=== PATIENT | male | born 2000 | race Caucasian/White ===

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

== ENCOUNTER 2019-10-16 19:49 | Emergency (ER) | payer SELFPAY ==
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
[2019-10-16 20:31] LABS: ABS Lymphocytes 1.6 10^3/ul (1.0-4.8); ABS Monocytes 0.6 10^3/ul (0-0.8); ABS Neutrophils 7.6 10^3/ul (1.5-7.7); Eosinophil % 0.3 %; Hematocrit 37 % (42-52); Hemoglobin 12.6 g/dL (14.0-18.0); Lymphocyte % 16.4 %; Mean Corpuscular HGB Conc 34 g/dL (31-36); Mean Corpuscular Hemoglobin 29 pg (27-31); Mean Corpuscular Volume 86 fL (80-94); Mean Platelet Volume 7.4 fL (7.4-10.4); Platelet Count 294 10^3/uL (150-450); Red Blood Count 4.32 10^6 /uL (4.18-5.48); Red Cell Distribution Width 14 % (10-15); White Blood Count 9.9 10^3/uL (3.5-10.8)
[2019-10-16 20:44] LABS: Urine Appearance Cloudy; Urine Bilirubin Negative (Negative); Urine Blood Negative (Negative); Urine Color Yellow; Urine Glucose Negative (Negative); Urine Ketones Trace (Negative); Urine Nitrite Negative (Negative); Urine Protein 1+(30 mg/dL) (Negative); Urine Specific Gravity 1.028 (1.010-1.030); Urine Urobilinogen Negative (Negative)
--- OUTSIDE RECORDS SUMMARY | 2019-10-16 20:45 | XMS REPORT | Continuity of Care Document ---
:2000 External Reference #:[id number] Author Name Fermin Sepulveda MD Address [address] [place] [id number] Care Team Providers Name Role Phone Fermin Sepulveda MD FACP - Care Team Information Locker Room Attendant [phone] Internal Medicine Problems Active Problems Provider Date Excessive somnolence Fermin Sepulveda MD Onset: 05/13/2019 Panic disorder without agoraphobia Fermin Sepulveda MD Onset: 05/13/2019 Generalized anxiety disorder Fermin Sepulveda MD Onset: 05/13/2019 Social History Type Date Description Comments Sex Unknown Smokeless Tobacco Current Smokeless Tobacco User, Uses 2 times Daily ETOH Use Denies alcohol use Tobacco Use Start: Unknown Patient has never smoked Recreational Drug Use Denies Drug Use Smoking Status Reviewed: 05/13/19 Patient has never smoked Exercise Type/Frequency Does not exercise Allergies, Adverse Reactions, Alerts Description No Known Drug Allergies Medications Active Medications SIG Qnty Indications Ordering Provider Date Citalopram take 1 tablet by 30tabs F41.1 Fermin Williamson Hydrobromide mouth daily for MD Derick 20mg Tablets anxiety F41.0 Immunizations CPT Code Status Date Vaccine Lot # [id number] Given 09/29/2019 Tdap-Tetanus, Diphtheria Toxoids/Acellular [id number] Pertussis Vaccine 7+ [id number] Given 06/20/2019 Influenza Vaccine Quadrivalent Preser/Antibiotic Free Im Use [id number] Given 02/16/2009 Tdap-Tetanus, Diphtheria Toxoids/Acellular Pertussis Vaccine 7+ Vital Signs Date Vital Result Comment 09/29/2019 2:55pm Weight 135.00 lb 06/24/2019 1:33pm Heart Rate 66 /min BP Systolic 100 mmHg BP Diastolic 65 mmHg Weight 128.00 lb Results Test Acquired Date Facility Test Result H/L Range Note Urinalysis Profile 09/28/2019 [facility] Urine [place] [address] [phone] Urine Appearance Clear Urine Specific [place] 1.027 Normal 1.010-1.030 Urine pH 6.0 Normal 5-9 Urine Urobilinogen Negative Negative Urine Ketones Negative Negative Urine Protein Negative Negative Urine Leukocytes Negative Negative Urine Blood Negative Negative Urine Nitrite Negative Negative Urine Bilirubin Negative Negative Urine Glucose Negative Negative Urinalysis Profile 06/17/2019 [facility] Urine Color Straw [place], [place] [id number] [phone] Urine Appearance Clear Urine Specific [place] 1.009 Low 1.010-1.030 Urine pH 6.0 Normal 5-9 Urine Urobilinogen Negative Negative Urine Ketones Negative Negative Urine Protein Negative Negative Urine Leukocytes Negative Negative Urine Blood Negative Negative Urine Nitrite Negative Negative Urine Bilirubin Negative Negative Urine Glucose Negative Negative CBC No Diff 05/29/2019 [facility] White Blood 6.3 10^3/uL Normal 3.5-10.8 [place] [address] Count [phone] Red Blood Count 4.73 10^6/uL Normal 4.18-5.48 Hemoglobin 14.0 g/dL Normal 14.0-18.0 Hematocrit 42 % Normal 42-52 Mean Corpuscular Volume 89 fL Normal 80-94 Mean Corpuscular Hemoglobin 30 pg Normal 27-31 Mean Corpuscular HGB Conc 33 g/dL Normal 31-36 Red Cell Distribution Width 13 % Normal 10-15 Platelet Count 289 10^3/uL Normal 150-450 Mean Platelet Volume 7.9 fL Normal 7.4-10.4 Comp Metabolic 05/29/2019 [facility] Sodium 139 mmol/L Normal 135-145 Panel [place], [place] [id number] [phone] Potassium 4.4 mmol/L Normal 3.5-5.0 Chloride 104 mmol/L Normal 101-111 Co2 Carbon Dioxide 29 mmol/L Normal 22-32 Anion Gap 6 mmol/L Normal 2-11 Calcium 9.6 mg/dL Normal 8.6-10.3 Albumin 4.8 g/dL Normal 3.2-5.2 Total Bilirubin 0.30 mg/dL Normal 0.2-1.0 Glucose 83 mg/dL Normal 70-100 Blood Urea Nitrogen 17 mg/dL Normal 6-24 Creatinine 0.98 mg/dL Normal 0.67-1.17 BUN/Creatinine Ratio 17.3 Normal 8-20 Total Protein 7.0 g/dL Normal 6.4-8.9 Globulin 2.2 g/dL Normal 2-4 Albumin/Globulin Ratio 2.2 Normal 1-3 Alkaline Phosphatase 83 U/L Normal 34-104 Alt 10 U/L Normal 7-52 Ast 13 U/L Normal 13-39 Egfr Non- 96.6 >60 Egfr 116.8 >60 1 Laboratory test 05/29/2019 [facility] Creatine 138 U/L Normal 10-223 [place] [address] Kinase(CK) [phone] Cortisol 16.29 g/dL 2 TSH (Thyroid Stim Horm) 1.69 mcIU/mL Normal 0.34-5.60 Vitamin D Total 25(Oh) 24.3 ng/mL Normal 20-50 3 Vitamin B12 287 pg/mL Normal 180-914 4 Lipid Profile 05/29/2019 [facility] Triglycerides 51 mg/dL 5 (Trig/Chol/HDL) [place] [address] [phone] Cholesterol 125 mg/dL 6 HDL Cholesterol 41.2 mg/dL 7 LDL Cholesterol 74 mg/dL 8 Urinalysis Profile 05/29/2019 [facility] [place] [address] [phone] Urine Appearance Clear Urine Specific [place] 1.026 Normal 1.010-1.030 Urine pH 5.0 Normal 5-9 Urine Urobilinogen Negative Negative Urine Ketones Negative Negative Urine Protein Negative Negative Urine Leukocytes Negative Negative Urine Blood 2+ Abnormal Negative Urine Nitrite Negative Negative Urine Bilirubin Negative Negative Urine Glucose Negative Negative Urine White Blood Cell Trace(0-5/hpf) Absent Urine Red Blood Cell Trace(0-2/hpf) Absent Urine Bacteria Absent Absent Urine Culture And 05/29/2019 [facility] Urine Culture SEE RESULT 9 [place] [address] BELOW [phone] 1 Because ethnic data is not always readily available, this report includes an eGFR for both -Americans and non- Americans. The National Kidney Disease Education Program (NKDEP) does not endorse the use of the MDRD equation for patients that are not between the ages of 18 and 70, are , have extremes of body size, muscle mass, or nutritional status, or are non- or non-. According to the National Kidney Foundation, irrespective of diagnosis, the stage of the disease is based on the level of kidney function: Stage Description GFR(mL/min/1.73 m(2)) 1 Kidney damage with normal or decreased GFR 90 2 Kidney damage with mild decrease in GFR 60-89 3 Moderate decrease in GFR 30-59 4 Severe decrease in GFR 15-29 5 Kidney failure <15 (or dialysis) 2 AM 8.7-22.4 PM <10 3 Total 25-Hydroxyvitamin D2 and D3 (25-OH-VitD) <10 ng/mL (severe deficiency) 10-19 ng/mL (mild to moderate deficiency) 20-50 ng/mL (optimum levels) 51-80 ng/mL (increased risk of hypercalciuria) >80 ng/mL (toxicity possible) 4 Normal Range 180 to 914 Indeterminate Range 145 to 180 Deficient Range <145 5 Desirable: <150 Borderline High: 150-199 High: 200-499 Very High: >500 6 Desirable: <200 Borderline High: 200-239 High: >239 7 Low: <40 Desirable: 40-60 High: >60 8 Desirable: <100 Near Optimal: 100-129 Borderline High: 130-159 High: 160-189 Very High: >189 9 SEE RESULT BELOW Name: LISETH NAN : [address]: Fermin Sepulveda MD Acct: [id number] Unit: [id number] AGE: 19 Location: LAB Re05/29/19 SEX: M Status: REG REF SPEC: [id number] RAFAL: 05/29/[address]: Fermin Sepulveda MD REQ: [id number] RECD: 05/29/19 STATUS: COMP _ SOURCE: URINE SPDESC: ORDERED: Urine Culture Procedure Result Reported Site Urine Culture Final 05/30/19- 1003 ML No Growth (<1,000 CFU/mL) * ML - Main Lab . END OF REPORT DEPARTMENT OF PATHOLOGY, [address] [place] [id number] Michael Lemon M.D. Director [facility] # [id number] Procedures Description No Information Available Medical Devices Description No Information Available Encounters Type Date Location Provider Dx Diagnosis Office Visit 09/29/2019 Main Office Fermin Sepulveda G47.10 Hypersomnia, 3:00p unspecified F41.1 Generalized anxiety disorder F41.0 Panic disorder [episodic paroxysmal anxiety] R31.21 Asymptomatic microscopic hematuria Office Visit 06/24/2019 1:40p Main Office Fermin Williamson Z00.01 Encounter for MD Derick general adult medical exam w abnormal findings F41.1 Generalized anxiety disorder R31.21 Asymptomatic microscopic hematuria G47.10 Hypersomnia, unspecified Office Visit 05/13/2019 2:40p Main Office Fermin Williamson F41.1 Generalized anxiety MD Derick disorder F41.0 Panic disorder [episodic paroxysmal anxiety] G47.10 Hypersomnia, unspecified R53.83 Other fatigue Assessments Date Code Description Provider 09/29/2019 G47.10 Hypersomnia, unspecified Fermin Sepulveda MD 09/29/2019 F41.1 Generalized anxiety disorder Fermin Sepulveda MD 09/29/2019 F41.0 Panic disorder [episodic paroxysmal anxiety] Fermin Sepulveda MD 09/29/2019 R31.21 Asymptomatic microscopic hematuria Fermin Sepulveda MD 06/24/2019 Z00.01 Encounter for general adult medical Fermin Sepulveda MD examination with abnormal findings 06/24/2019 F41.1 Generalized anxiety disorder Fermin Sepulveda MD 06/24/2019 R31.21 Asymptomatic microscopic hematuria Fermin Sepulveda MD 06/24/2019 G47.10 Hypersomnia, unspecified Fermin Sepulveda MD 05/13/2019 F41.1 Generalized anxiety disorder Fermin Sepulveda MD 05/13/2019 F41.0 Panic disorder [episodic paroxysmal anxiety] Fermin Sepulveda MD 05/13/2019 G47.10 Hypersomnia, unspecified Fermin Sepulveda MD 05/13/2019 R53.83 Other fatigue Fermin Sepulveda MD Plan of Treatment 09/29/2019 - Fermin Sepulveda MDG47.10 Hypersomnia, unspecifiedComments: Resolved.F41.1 Generalized anxiety disorderComments:Clinically stable. Continue recommended plan of care. Follow up recommendations discussed. Encouraged to continue efforts related to modification of life style.F41.0 Panic disorder [ episodic paroxysmal anxiety]R31.21 Asymptomatic microscopic hematuriaComments: Asymptomatic and normal UA. Functional Status Description No Information Available Mental Status Description No Information Available Referrals Description No Information Available
[2019-10-16 20:47] LABS: ALT 14 U/L (7-52); AST 23 U/L (13-39); Albumin 4.6 g/dL (3.2-5.2); Albumin/Globulin Ratio 1.9 (1-3); Alkaline Phosphatase 73 U/L (34-104); Anion Gap 8 mmol/L (2-11); BUN/Creatinine Ratio 18.1 (8-20); Blood Urea Nitrogen 21 mg/dL (6-24); CO2 Carbon Dioxide 26 mmol/L (22-32); Calcium 9.8 mg/dL (8.6-10.3); Chloride 104 mmol/L (101-111); EGFR African American 96.2 (>60); EGFR Non-African American 79.5 (>60); Globulin 2.4 g/dL (2-4); Glucose 105 mg/dL (70-100); Potassium 3.6 mmol/L (3.5-5.0); Sodium 138 mmol/L (135-145)
[2019-10-16 20:50] LABS: Urine Bacteria Absent (Absent); Urine Granular Casts Present (Absent); Urine Red Blood Cell Trace(0-2/hpf) (Absent); Urine Squamous Epithelial Cell Present (Absent); Urine White Blood Cell 1+(6-10/hpf) (Absent)
[2019-10-16 21:01] LABS: Acetaminophen < 15 mcg/mL; Alcohol < 10 mg/dL (<10); Salicylate < 2.50 mg/dL (<30)
[2019-10-16 21:04] LABS: Urine Benzodiazepine Screen None Detected (None Detect); Urine Opiates Screen None Detected (None Detect)
[2019-10-16 21:28] VITALS: BP 118/66
== END 2019-10-16 21:28 | disposition home or self-care (01) ==
LOC: ED 19:49
DX: Z57.5 Occupational exposure to toxic agents in other industries (principal); X08.8XXA Exposure to other specified smoke, fire and flames, initial encounter; Y92.9 Unspecified place or not applicable; Y99.0 Civilian activity done for income or pay; J45.909 Unspecified asthma, uncomplicated
CPT/HCPCS: 36415; 71046; 80053; 80307; 80320; 80329; 81003; 81015; 83605; 85025; 87086; 93005; 99283; G0480